=== PATIENT | female | born 1980 | race Hispanic/Latino ===

== ENCOUNTER 2017-10-02 19:47 | Emergency (ER) | payer SELFPAY ==
[2017-10-02] MEDS ORDERED: Morphine 2 mg/ml ISec IVP STA (20:17)
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
[2017-10-02 20:23] VITALS: BMI 24.2
[2017-10-02 20:26] VITALS: RESP 18; TEMP 98.2
[2017-10-02] MEDS ORDERED: Morphine 5 MG/ML SYRINGE IVP STA ×2 (20:26→21:45)
[2017-10-02 20:55] LABS: ALB/GLOB RATIO 1.5 (1.1-1.8); ALBUMIN 4.2 g/dL (3.0-4.8); ALT/SGPT 39 U/L (7-56); AST/SGOT 28 U/L (14-36); BLOOD UREA NITROGEN 8 mg/dL (7-21); CALCIUM 9.7 mg/dL (8.4-10.5); GFR AFRICAN-AMERICAN > 60; GFR NON-AFRICAN AMERICAN > 60
[2017-10-02 20:56] LABS: BASO # 0.01 K/mm3 (0.0-2.0); BASO % 0.2 % (0.0-3.0); EOS % 0.6 % (1.5-5.0); GRAN # 3.76 (1.4-6.5); GRAN % 69.8 % (50.0-68.0); LYMPH # 1.1 (1.2-3.4); LYMPH % 19.9 % (22.0-35.0); MEAN CELL VOLUME 89.2 fl (80.0-105.0); MEAN CORPUSCULAR HEMOGLOBIN 28.9 pg (25.0-35.0); MEAN CORPUSCULAR HGB CONC 32.4 g/dl (31.0-37.0); MEAN PLATELET VOLUME 9.4 fl (7.0-11.0); MONO # 0.5 (0.1-0.6); MONO % 9.5 % (1.0-6.0); RBC 3.81 10^6/uL (3.5-6.1); RED CELL DISTRIBUTION WIDTH 12.3 % (11.5-14.5); WHITE BLOOD COUNT 5.4 10^3/ul (4.5-11.0)
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
[2017-10-02 21:13] LABS: INR 1.18 (0.93-1.08); PARTIAL THROMBOPLASTIN TIME 28.9 Seconds (25.1-36.5); PROTHROMBIN TIME 13.5 SECONDS (9.4-12.5)
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
[2017-10-02] MEDS ORDERED: Bacitracin 500 Units/gm Oint Foilpak UD TOP STA (22:21)
[2017-10-02] MEDS ORDERED: TDAP Vaccine 0.5 mL Syr IM ONE (22:43)
[2017-10-02 23:16] VITALS: BP 124/78; PULSE 72; O2SAT 100
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
== END 2017-10-02 23:28 | disposition home or self-care (01) ==
LOC: ED 19:47
DX: S09.90XA Unspecified injury of head, initial encounter (principal); S40.011A Contusion of right shoulder, initial encounter; S20.229A Contusion of unspecified back wall of thorax, initial encounter; S80.02XA Contusion of left knee, initial encounter; S80.01XA Contusion of right knee, initial encounter; V03.90XA Pedestrian on foot injured in collision with car, pick-up truck or van, unspecified whether traffic or nontraffic accident, initial encounter; Y92.410 Unspecified street and highway as the place of occurrence of the external cause; Z23 Encounter for immunization
CPT/HCPCS: 70450; 71045; 71250; 72125; 72128; 72131; 72170; 73030; 73560; 80053; 85025; 85610; 85730; 86850; 86900; 90471; 90715; 96374; 96376; 99285; J2270

== ENCOUNTER 2017-11-09 12:59 | Emergency (ER) | payer OTHER ==
[2017-11-09 13:56] VITALS: BP 101/61; PULSE 80; RESP 18; TEMP 98.2; O2SAT 100; BMI 22.4
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
== END 2017-11-09 15:56 | disposition home or self-care (01) ==
LOC: ED 12:59
DX: M62.838 Other muscle spasm (principal)
CPT/HCPCS: 74176; 96372; 99282; J1885